=== PATIENT | female | born 1970 | race Caucasian/White ===

== ENCOUNTER 2017-08-13 09:07 | Day surgery (SDC) | payer BC ==
[~2017-08-13 09:07] MED LIST: Fluorescein 5 ML Vial ONE; Lidocaine 2% 5 ML SDV ONE; Methylene Blue 50 MG/10 ML Ampule ONE; Midazolam 1 MG/ML 2 ML SDV ONE; Ondansetron 4 MG/2 ML SDV ONE; Propofol 200 MG/20 ML SDV ONE; Rocuronium 10 MG/ML 10 ML Syringe ONE; Scopolamine 1.5 MG Transdermal Patch TRDERM PRN; Sodium Chloride 0.9% 10 ML Syringe FLUSH PRN; Sodium Chloride 0.9% 2.5 ML Syringe FLUSH PRN; Sodium Chloride 0.9% 20 ML ONE; ceFAZolin 1 GM in Premix Bag 1 BAG IV ONE; diphenhydrAMINE 50 MG/ML SDV ONE; fentaNYL 100 MCG/2 ML SDV IVPUSH PRN
[2017-08-13] MEDS ORDERED: Acetaminophen 1,000 MG in Premix Bag 1 BAG IV SCH (09:30)
--- NOTE | 2017-08-13 09:43 | PCM.PREANE ---
Preanesthetic Assessment - Anesthesia/Transfusion/Family Hx Anesthesia History: Prior Anesthesia Without Reaction Family History of Anesthesia Reaction: No Transfusion History: No Prior Transfusion(s) Intubation History: Unknown - Review of Systems General: No Symptoms Pulmonary: No Symptoms Cardiovascular: No Symptoms Gastrointestinal: No Symptoms Neurological: No Symptoms Other: Reports: None - Physical Assessment Height: 1.7 m Weight: 74.389 kg ASA Class: 2 Mental Status: Alert & Oriented x3 Airway Class: Mallampati = 2 Dentition: Reports: Normal Dentition Thyro-Mental Finger Breadths: 3 Mouth Opening Finger Breadths: 2 (TMJ) Lungs: Clear to Auscultation, Normal Respiratory Effort Cardiovascular: Regular Rate, Regular Rhythm - Allergies Allergies/Adverse Reactions: Allergies Allergy/AdvReac Type Severity Reaction Status Date / Time morphine Allergy Agitation Verified 08/08/17 13:21 - Blood Blood Available: No - Anesthesia Plan Pre-Op Medication Ordered: None - Acknowledgements Anesthesia Type Planned: General Anesthesia Pt an Appropriate Candidate for the Planned Anesthesia: Yes Alternatives and Risks of Anesthesia Discussed w Pt/Guardian: Yes Pt/Guardian Understands and Agrees with Anesthesia Plan: Yes PreAnesthesia Questionnaire HEENT History: Reports: Allergic Rhinitis, Glaucoma Other HEENT History: had procedure to releave pressure in eyes, allergies only in summer Cardiovascular History: Reports: Other (See Below) Other Cardiovascular History: wore Holter monitor recently, she was not given results, supp. there was sinus tachy - no report or medication given Respiratory History: Reports: Asthma (moderate) Other Respiratory History: no problems in the winter, has not used rescue inhaler for 3 years Gastrointestinal History: Reports: Diverticulosis, GERD Other Gastrointestinal History: changed diet with resolution of GERD [employer] FINISHER History: Reports: Dysfunctional Uterine Bleeding, , Spontaneous Musculoskeletal History: Reports: Fracture Other Musculoskeletal History: hx of fx left hand Neurological History: Reports: Concussion, Headaches, Chronic, Migraines Other Neuro History: headaches daily, hx of cluster migranes, hx of 5 concussions Psychiatric History: Reports: Other (See Below) Other Psychiatric History: needle phobia Oncologic (Cancer) History: Reports: Basal Cell Carcinoma, Other (See Below) Other Oncologic History: states has increased risk of Leukemia because of insecticide poisening (Malathion) - Past Surgical History HEENT Surgical History: Reports: Oral Surgery, Other (See Below) Other HEENT Surgeries/Procedures: wisdom teeth, had abscess in throat drained in surgery Female Surgical History: Reports: Section Musculoskeletal Surgical History: Reports: Arthroscopic Knee Other Oncologic Surgeries/Procedures: basal cell removed from face Dermatological Surgical History: Reports: Skin Biopsy (basal cell) - SUBSTANCE USE Smoking Status *Q: Former Smoker (quit long time ago) Recreational Drug Use History: Yes Recreational Drug Type: Reports: Methamphetamine Recreational Drug Last Use: 2001 - HOME MEDS Home Medications: Home Meds Norethindrone-Ethinyl Estrad [Nortrel 1-35 28 Tablet] 1 tab PO DAILY 08/08/17 [ History] - CURRENT (IN HOUSE) MEDS Current Meds: Current Medications Fentanyl (Sublimaze) 50 mcg IVPUSH .Q5MIN PRN PRN Reason: Pain Acetaminophen 1,000 mg/ Premix 100 mls @ 400 mls/hr IV .ONETIME [facility] Scopolamine (Transderm-Scop) 1.5 mg TRDERM .ONCE PRN PRN Reason: Post Op Nausea Sodium Chloride (Saline Flush) 10 ml FLUSH ASDIRECTED PRN PRN Reason: Keep Vein Open Sodium Chloride (Saline Flush) 2.5 ml FLUSH ASDIRECTED PRN PRN Reason: Keep Vein Open Discontinued Medications Diphenhydramine HCl (Benadryl) Confirm Administered Dose 50 mg .ROUTE .STK-MED ONE Stop: 08/13/17 07:19 Fluorescein Sodium (Ak-Fluor) Confirm Administered Dose 5 ml .ROUTE .STK-MED ONE Stop: 08/13/17 07:22 Cefazolin Sodium/Dextrose 1 gm (/ Premix) 50 mls @ 100 mls/hr IV ONETIME ONE Stop: 08/13/17 05:29 Sodium Chloride (Normal Saline) Confirm Administered Dose 20 mls @ as directed .ROUTE .STK-MED ONE Stop: 08/13/17 07:19 Cefazolin Sodium/Dextrose (Ancef) Confirm Administered Dose 50 mls @ as directed .ROUTE .STK-MED ONE Stop: 08/13/17 07:19 Sufentanil Citrate (Sufentanil Citrate) Confirm Administered Dose 1 mls @ as directed .ROUTE .STK-MED ONE Stop: 08/13/17 07:21 Lidocaine (Xylocaine-Mpf 2%) Confirm Administered Dose 5 ml .ROUTE .STK-MED ONE Stop: 08/13/17 07:18 Methylene Blue (Provayblue) Confirm Administ[facility]: 08/13/17 08:00 Midazolam HCl (Versed 1 Mg/Ml) Confirm Administered Dose 2 mg .ROUTE .[facility] ONE Stop: 08/13/17 07:18 Ondansetron HCl (Zofran) Confirm Administered D[facility] 4 mg [facility] Stop: 08/13/17 07:18 Propofol (Diprivan 20 Ml) Confirm Administered Dose 200 mg .ROUTE .[facility] ONE Stop: 08/13/17 07:18 Rocuronium [place] (Zemuron) Confirm Administered Dose 100 [facility] Stop: 08/13/17 07:18
[2017-08-13] MEDS: Lactated Ringers 1,000 ML IV SCH ×2 (09:54→22:19)
[2017-08-13] MEDS ORDERED: Bupivacaine 0.25% 10 ML SDV ONE (10:25)
[2017-08-13 10:56] LABS: CHLORIDE,CL 108 mmol/L (98-110); SODIUM,NA 140 mmol/L (136-146)
[2017-08-13] MEDS ORDERED: Furosemide 40 MG/4 ML VIAL ONE (11:34)
[2017-08-13] MEDS ORDERED: Ketorolac 30 MG/ML SDV ONE (12:16)
[2017-08-13] MEDS ORDERED: Neostigmine Methylsulfate 1 MG/ML 5 ML Syringe ONE (12:17)
[2017-08-13] MEDS ORDERED: Acetaminophen/oxyCODONE 325-5 MG Tab PO PRN ×2 (12:21)
[2017-08-13] MEDS ORDERED: Ketorolac 30 MG/ML SDV IVPUSH ONE (12:21)
[2017-08-13] MEDS ORDERED: Aluminum Hydroxide/Magnesium Hydroxide/Simethicone Susp 30 ML Cup PO PRN (12:21)
[2017-08-13] MEDS ORDERED: Promethazine 25 MG/ML SDV IM PRN (12:21)
[2017-08-13] MEDS ORDERED: Ondansetron 4 MG/2 ML SDV IVPUSH PRN (12:21)
[2017-08-13] MEDS ORDERED: Lactated Ringers 1,000 ML IV SCH (12:30)
[2017-08-13] MEDS ORDERED: fentaNYL 100 MCG/2 ML SDV IVPUSH PRN (12:31)
--- NOTE | 2017-08-13 12:40 | PCM.OPNOTE ---
- General Post-Op/Procedure Note Date of Surgery/Procedure: 08/13/17 Operative Procedure(s): LAVH/bilateral salpingectomy/cystoscopy Findings: 10 week fibroid uterus, normal appearing ovaries/tubes/bilateral patent ureters Pre Op Diagnosis: Uterine fibroids. Abnormal uterine bleeding Post-Op Diagnosis: same Anesthesia Technique: General ET Tube Primary Surgeon: Vicki Hope Sodium Chlorite Operator: Daniela Ahn Pathology: uterus, tubes Fluid Replacement, Intraop: 1,800 Output, Urine Amount: 50 EBL in mLs: 50 Complications: none known Condition: Good Free Text/Narrative:: Dictation [id number]
[2017-08-13] MEDS: Metoclopramide 10 MG/2 ML SDV IVPUSH PRN (17:39)
[2017-08-13] MEDS: Ketorolac 30 MG/ML SDV IVPUSH PRN (17:42)
--- NOTE | 2017-08-13 18:29 | PCM.SN ---
- Free Text/Narrative Note: Patient is having nausea--have added reglan to antiemetic regimen. She has some cramping, pain meds are helping to alleviate. VS are stable overall. Explained intraoperative findings, procedure. Ambulate this pm. Remove garcia catheter this evening. If nausea is improved and able to void with stable labs in the morning, anticipate discharge.
--- NOTE | 2017-08-13 18:36 | OR ---
SURGEON: Vicki Hope M.D. DATE OF PROCEDURE: 08/13/2017 PREOPERATIVE DIAGNOSES: 1. Symptomatic uterine fibroids. 2. Abnormal uterine bleeding. POSTOPERATIVE DIAGNOSES: 1. Symptomatic uterine fibroids. 2. Abnormal uterine bleeding. PROCEDURE: Laparoscopic-assisted vaginal hysterectomy, bilateral salpingectomy, and cystoscopy. WEB MANAGER: Daniela Ahn M.D. ESTIMATED BLOOD LOSS: 50 mL. ANESTHESIA: General tracheal anesthesia. FLUIDS: 1800 mL crystalloids. COMPLICATIONS: None known. DISPOSITION: Patient to PACU in stable. SPECIMEN: Pathology. PROCEDURE IN DETAIL: German is a 46-year-old female, who has known uterine fibroids and now has had over a month of persistent vaginal bleeding. Sonohysterogram reveals that the fibroid does appear to have a submucosal component. She would like to have definitive intervention for this in the from of hysterectomy. Risks of the procedure have been discussed with her and proper consent obtained. The patient was taken to the operating room, where she underwent general endotracheal anesthesia, placed in modified dorsal lithotomy position, and prepped and draped in the usual sterile fashion. SCDs lower extremities. Rodriguez to gravity. It was back filled with methylene blue. Received Ancef prophylactically. Time-out was performed. Speculum was introduced in the vagina. Anterior lip of cervix was grasped with a single-tooth tenaculum. Cervix was gently dilated to 5 mm. Uterine HUMI manipulator was gently introduced. Balloon was insufflated. All instruments other than the uterine manipulator were now removed from the vagina. Gloves changed. Attention turned abdominally. Infraumbilically, 0.25% Marcaine was dispensed. Please see nurse's notes for total amount of local dispensed during the procedure. A 5 mm infraumbilical incision was created, anterior abdominal wall tented upward. A Veress needle introduced, saline hanging drop test was performed. Pneumoperitoneum was achieved. The Veress needle was removed. A 5-mm trocar was introduced. Laparoscope was introduced. Peritoneal contents were identified. Left and right lower quadrant trocars were placed under direct visualization after prepping the regions with 0.25% Marcaine creating 5 mm skin incisions and introducing trocars. The uterus was mobile, it was slightly bulky with fibroids, and the ovaries appeared normal. Fallopian tubes appeared normal. Ureters were seen peristalsing well below the region of the operative field. We initially began with performing a left salpingectomy up to the level of the cornua and then secured the pedicles using LigaSure including the tubo-ovarian pedicle the upper portion of the broad ligament, the midportion of broad ligament, including the round ligament, base of the broad ligament including cardinal ligaments. The bladder flap was then created by identifying uterovesical reflection and incising the peritoneum along this region. Remainder of the cardinal ligaments, along the left side were now secured with LigaSure and transected. Attention was now turned to performing the same procedure on the patient's right side. The right salpingectomy until the cornu was performed. Pedicles secured including utero tubo-ovarian, the pedicles along the broad ligament including the round ligament, and a portion of broad ligament, base of cardinal ligaments down to the level of the uterosacral ligament. The bladder flap was now further dissected using LigaSure and hydrodissection. The bladder was felt to be nicely mobilized away from lower uterine segment and cervix. It was felt that could proceed vaginally with remainder of the procedure. Therefore, pneumoperitoneum was released. Laparoscopic instruments were removed. Attention was turned vaginally. The methylene blue was now released from the bladder. Weighted speculum was introduced in the vagina, anterior Josie. Cervix was grasped with Yany clamp and circumscribed with Bovie cautery. Anterior and posterior and overlying mucosa was dissected away from underlying peritoneum. Posterior peritoneum was tented downward and entered sharply. A longer weighted speculum was replaced with the shorter. Anteriorly, the anterior cul-de-sac was entered sharply. A Josie was placed to mobilize the bladder away from the lower uterine segment and cervix. The Erik clamp was utilized on either side to secure the uterosacral ligament pedicles, transected and suture ligated with 2-0 Vicryl. The uterus including the fallopian tubes were able to be removed at this time. These pedicles were secured and then the pedicles were transfixed to the vaginal apex on either side. The pedicles were closely inspected and found to be hemostatic. The cuff was now closed using 0 Vicryl in continuous running locked fashion. The cuff line was inspected, found to be hemostatic. Rodriguez balloon was desufflated. Rodriguez catheter was removed. Cystoscope was introduced, IV fluorescein and Lasix had been introduced. The bladder was able to be visualized. The dome of bladder was found to be intact. The trigone was inspected and found to be intact. The right ureteral orifice followed by the left ureteral orifice was visualized and fluorescein dye was seen streaming from them, helping to ensure ureteral patency. The bladder was now drained. Rodriguez catheter was replaced. Vaginal cuff line was again inspected and found to be hemostatic. Gloves changed. Attention was turned abdominally. Pneumoperitoneum was once again achieved. Laparoscope was introduced. The pedicles were closely inspected, copiously irrigated, and found to be hemostatic. The relief pressure was decreased to 5 mm. Once again, pedicles was still found to be hemostatic. The patient tolerated this procedure well. The laparoscopic instruments were now removed after pneumoperitoneum was released under direct visualization. The skin edges were reapproximated using 4-0 Monocryl in subcuticular fashion. Sponge, lap, needle count was correct x2. The patient tolerated the procedure well. She will go to PACU in stable condition. Specimens to pathology. PRISCILA / TIERRA /[id number]
[2017-08-13] MEDS: Docusate Sodium 100 MG Cap PO SCH (22:36)
[2017-08-14 05:56] LABS: CHLORIDE,CL 112 mmol/L (98-110); SODIUM,NA 140 mmol/L (136-146)
[2017-08-14] MEDS: Docusate Sodium 100 MG Cap PO SCH (09:24)
[2017-08-14] MEDS ORDERED: Simethicone 80 MG Tab.Chew PO ONE (10:36)
--- NOTE | 2017-08-14 10:36 | PCM.SURGPN ---
- General Info Date of Service: 08/14/17 POD#: 1 Functional Status: Reports: Pain Controlled, Tolerating Diet, Ambulating, Urinating - Review of Systems General: Denies: Fever Pulmonary: Denies: Shortness of Breath Cardiovascular: Denies: Chest Pain, Palpitations, Lightheadedness Gastrointestinal: Reports: Abdominal Pain (mild bloating today), Flatus. Denies : Nausea, Vomiting Genitourinary: Denies: Flank Pain Neurological: Reports: No Symptoms Psychiatric: Reports: No Symptoms - Patient Data Vitals - Most Recent: Last Vital Signs Temp 37.5 C 08/14/17 08:00 Pulse 64 08/14/17 08:00 Resp 18 08/14/17 08:00 BP 109/60 08/14/17 08:00 Pulse Ox 95 08/14/17 08:00 Weight - Most Recent: 74.389 kg I&O - Last 24 Hours: Intake & Output 08/13/17 08/14/17 08/14/17 22:59 06:59 14:59 Intake Total 625 1925 Output Total 400 2400 Balance 225 -475 Lab Results Last 24 Hrs: Laboratory Results - last 24 hr 08/13/17 08/14/17 08/14/17 Range/Units 09:32 04:48 04:48 WBC 12.58 H (4.0-11.0) K/uL RBC 3.95 L (4.30-5.90) M/uL Hgb 12.1 (12.0-16.0) g/dL Hct 36.1 (36.0-46.0) % MCV 91.4 (80.0-98.0) fL MCH 30.6 (27.0-32.0) pg MCHC 33.5 (31.0-37.0) g/dL RDW Std Deviation 49.8 (28.0-62.0) fl RDW Coeff of Janes 15 (11.0-15.0) % Plt Count 269 (150-400) K/uL MPV 9.50 (7.40-12.00) fL Neut % (Auto) 59.3 (48.0-80.0) % Lymph % (Auto) 27.7 (16.0-40.0) % Bull[place] % (Auto) 11.8 (0.0-15.0) % Eos % (Auto) 1.0 (0.0-7.0) % Baso % (Auto) 0.2 (0.0-1.5) % Neut # (Auto) 7.5 H (1.4-5.7) K/uL Lymph # (Auto) 3.5 H (0.6-2.4) K/uL Bulloch # (Auto) 1.5 H (0.0-0.8) K/uL Eos # (Auto) 0.1 (0.0-0.7) K/uL Baso # (Auto) 0.0 (0.0-0.1) K/uL Nucleated RBC % 0.0 /100WBC Nucleated RBCs # 0 K/uL Sodium 140 140 (136-146) mmol/L Potassium 3.9 4.2 (3.5-5.1) mmol/L Chloride 108 112 H (98-110) mmol/L Carbon Dioxide 22 19 L (21-31) mmol/L BUN 13 5 L (6.0-23.0) mg/dL Creatinine 0.7 0.6 (0.6-1.5) mg/dL Est Cr Clr Drug Dosing 97.65 113.93 mL/min Estimated GFR (MDRD) > 60.0 > 60.0 ml/min Glucose 84 99 (60-110) mg/dL Calcium 8.7 L 7.7 L (8.8-10.8) mg/dL Med Orders - Current: Current Medications Al Hydroxide/Mg Hydroxide (Mag-Al Plus) 30 ml PO Q4H PRN PRN Reason: Indigestion Docusate Sodium (Colace) 100 mg PO BID [facility] Last Admin: 08/14/17 09:24 Dose: Not Given Fentanyl (Sublimaze) 20 mcg IVPUSH Q1H PRN PRN Reason: Pain Acetaminophen 1,000 mg/ Premix 100 mls @ 400 mls/hr IV .ONETIME [facility] Last Admin: 08/13/17 09:51 Dose: 400 mls/hr Ketorolac Tromethamine (Toradol) 30 mg IVPUSH Q6H PRN PRN Reason: Pain (severe 7-10) Stop: 08/18/17 12:21 Last Admin: 08/13/17 17:42 Dose: 30 mg Metoclopramide HCl (Reglan) 10 mg IVPUSH Q6H PRN PRN Reason: Nausea/Vomiting Last Admin: 08/13/17 17:39 Dose: 10 mg Ondansetron HCl (Zofran) 4 mg IVPUSH Q6H PRN PRN Reason: Nausea/Vomiting Last Admin: 08/13/17 14:15 Dose: 4 mg Oxycodone/Acetaminophen (Percocet 325-5 Mg) 1 tab PO Q4H PRN PRN Reason: Pain (moderate 4-6) Last Admin: 08/14/17 03:21 Dose: 1 tab Oxycodone/Acetaminophen (Percocet 325-5 Mg) 2 tab PO Q4H PRN PRN Reason: Pain (moderate 4-6) Last Admin: 08/13/17 14:12 Dose: 2 tab Sodium Chloride (Saline Flush) 10 ml FLUSH ASDIRECTED PRN PRN Reason: Keep Vein Open Sodium Chloride (Saline Flush) 2.5 ml FLUSH ASDIRECTED PRN PRN Reason: Keep Vein Open Discontinued Medications Bupivacaine HCl (Sensorcaine-Mpf 0.25%) Confirm Administered Dose 20 ml .ROUTE .STK-MED ONE Stop: 08/13/17 10:26 Diphenhydramine HCl (Benadryl) Confirm Administered Dose 50 mg .ROUTE .STK-MED ONE Stop: 08/13/17 07:19 Fentanyl (Sublimaze) 50 mcg IVPUSH .Q5MIN PRN PRN Reason: Pain Fluorescein Sodium (Ak-Fluor) Confirm Administered Dose 5 ml .ROUTE .STK-MED ONE Stop: 08/13/17 07:22 Furosemide (Lasix) Confirm Administered Dose 40 mg .ROUTE .STK-MED ONE Stop: 08/13/17 11:35 Glycopyrrolate () Confirm Administered Dose 1 mg .ROUTE .STK-MED ONE Stop: 08/13/17 12:18 Cefazolin Sodium/Dextrose 1 gm (/ Premix) 50 mls @ 100 mls/hr IV ONETIME ONE Stop: 08/13/17 05:29 Last Admin: 08/13/17 16:22 Dose: Not Given Sodium Chloride (Normal Saline) Confirm Administered Dose 20 mls @ as directed .ROUTE .STK-MED ONE Stop: 08/13/17 07:19 Cefazolin Sodium/Dextrose (Ancef) Confirm Administered Dose 50 mls @ as directed .ROUTE .STK-MED ONE Stop: 08/13/17 07:19 Sufentanil Citrate (Sufentanil Citrate) Confirm Administered Dose 1 mls @ as directed .ROUTE .ST-MED ONE Stop: 08/13/17 07:21 Lactated Ringer's (Ringers, Lactated) 1,000 mls @ 125 mls/hr IV ASDIRECTED [facility] Last Admin: 08/13/17 22:19 Dose: 125 mls/hr Lactated Ringer's (Ringers, Lactated) 1,000 mls @ 125 mls/hr IV ASDIRECTED [facility] Last Admin: 08/13/17 14:11 Dose: 125 mls/hr Ketorolac Tromethamine (Toradol) Confirm Administered Dose 30 mg .ROUTE .ST- MED ONE Stop: 08/13/17 12:17 Ketorolac Tromethamine (Toradol) 30 mg IVPUSH ONETIME ONE Stop: 08/13/17 12:22 Last Admin: 08/13/17 16:21 Dose: Not Given Lidocaine (Xylocaine-Mpf 2%) Confirm Administered Dose 5 ml .ROUTE .ST-MED ONE Stop: 08/13/17 07:18 Methylene Blue (Provayblue) Confirm Administered Dose 50 mg .ROUTE .[facility]-MED ONE Stop: 08/13/17 08:00 Midazolam HCl (Versed 1 Mg/Ml) Confirm Administered Dose 2 mg .ROUTE .ST-MED ONE Stop: 08/13/17 07:18 Neostigmine Methylsulfate (Neostigmine) Confirm Administered Dose 5 mg .ROUTE .ST-MED ONE Stop: 08/13/17 12:18 Ondansetron HCl (Zofran) Confirm Administered Dose 4 mg .ROUTE .ST-MED ONE Stop: 08/13/17 07:18 Promethazine HCl (Phenergan) 25 mg IM Q6H PRN PRN Reason: Nausea/Vomiting Propofol (Diprivan 20 Ml) Confirm Administered Dose 200 mg .ROUTE .ST-MED ONE Stop: 08/13/17 07:18 Rocuronium [place] (Zemuron) Confirm Administered Dose 100 mg .ROUTE .STK-MED ONE Stop: 08/13/17 07:18 Scopolamine (Transderm-Scop) 1.5 mg TRDERM .ONCE PRN PRN Reason: Post Op Nausea - Exam Wound/Incisions: Dressing Dry and Intact General: Alert, Oriented Lungs: Normal Respiratory Effort Cardiovascular: Regular Rate, Regular Rhythm GI/Abdominal Exam: Normal Bowel Sounds, Soft, Distended (mild post laparoscopy) Extremities: No: Giselle's Sign Skin: Warm, Dry, Intact Psy/Mental Status: Alert - Problem List & Annotations (1) Leiomyoma of body of uterus SNOMED Code(s): 18993720 Code(s): D25.9 - LEIOMYOMA OF UTERUS, UNSPECIFIED Status: Acute Current Visit: Yes - Problem List Review Problem List Initiated/Reviewed/Updated: Yes - My Orders Last 24 Hours: Active Orders 24 hr Category Date Time Status Antiembolic Devices [RC] PER UNIT ROUTINE Care 08/13/17 12:22 Active May Shower [RC] ASDIRECTED Care 08/13/17 12:21 Active Notify Provider Intake and Out [RC] ASDIRECTED Care 08/13/17 12:21 Active Notify Provider Vital Signs [RC] ASDIRECTED Care 08/13/17 12:21 Active Oxygen Therapy [RC] ASDIRECTED Care 08/13/17 12:21 Active Pulse Oximetry [RC] PER UNIT ROUTINE Care 08/13/17 12:22 Active RT Incentive Spirometry [RC] Q2HWA Care 08/13/17 12:21 Active Ready for Discharge [RC] PER UNIT ROUTINE Care 08/14/17 10:32 Ordered Up With Assistance [RC] PER UNIT ROUTINE Care 08/13/17 12:21 Active Up ad Linda [RC] PER UNIT ROUTINE Care 08/13/17 12:21 Active Vital Signs [RC] Q4H Care 08/13/17 12:21 Active Regular Diet [DIET] Diet 08/13/17 Lunch Active Acetaminophen/oxyCODONE [Percocet 325-5 MG] Med 08/13/17 12:21 Active 1 tab PO Q4H PRN Acetaminophen/oxyCODONE [Percocet 325-5 MG] Med 08/13/17 12:21 Active 2 tab PO Q4H PRN Alum Hydrox/Mag Hydrox/Simeth [Mag-Al Plus] Med 08/13/17 12:21 Active 30 ml PO Q4H PRN Docusate Sodium [Colace] Med 08/13/17 21:00 Active 100 mg PO BID Ketorolac [Toradol] Med 08/13/17 12:21 Active 30 mg IVPUSH Q6H PRN Metoclopramide [Reglan] Med 08/13/17 17:32 Active 10 mg IVPUSH Q6H PRN Ondansetron [Zofran] Med 08/13/17 12:21 Active 4 mg IVPUSH Q6H PRN fentaNYL [Sublimaze] Med 08/13/17 12:31 Active 20 mcg IVPUSH Q1H PRN Perineal Care [OM.PC] Per Unit Routine Oth 08/13/17 12:22 Ordered Peripheral IV Discontinue [OM.PC] Routine Oth 08/13/17 12:21 Ordered Sequential Compression Device [OM.PC] Per Unit Routine Oth 08/13/17 12:21 Ordered Medication Orders Al Hydroxide/Mg Hydroxide (Mag-Al Plus) 30 ml PO Q4H PRN PRN Reason: Indigestion Docusate Sodium (Colace) 100 mg PO BID [facility] Last Admin: 08/14/17 09:24 Dose: Not Given Admin: 08/13/17 22:36 Dose: Not Given Fentanyl (Sublimaze) 20 mcg IVPUSH Q1H PRN PRN Reason: Pain Acetaminophen 1,000 mg/ Premix 100 mls @ 400 mls/hr IV .ONETIME [facility] Last Admin: 08/13/17 09:51 Dose: 400 mls/hr Ketorolac Tromethamine (Toradol) 30 mg IVPUSH Q6H PRN PRN Reason: Pain (severe 7-10) Stop: 08/18/17 12:21 Last Admin: 08/13/17 17:42 Dose: 30 mg Metoclopramide HCl (Reglan) 10 mg IVPUSH Q6H PRN PRN Reason: Nausea/Vomiting Last Admin: 08/13/17 17:39 Dose: 10 mg Ondansetron HCl (Zofran) 4 mg IVPUSH Q6H PRN PRN Reason: Nausea/Vomiting Last Admin: 08/13/17 14:15 Dose: 4 mg Oxycodone/Acetaminophen (Percocet 325-5 Mg) 1 tab PO Q4H PRN PRN Reason: Pain (moderate 4-6) Last Admin: 08/14/17 03:21 Dose: 1 tab Oxycodone/Acetaminophen (Percocet 325-5 Mg) 2 tab PO Q4H PRN PRN Reason: Pain (moderate 4-6) Last Admin: 08/13/17 14:12 Dose: 2 tab Sodium Chloride (Saline Flush) 10 ml FLUSH ASDIRECTED PRN PRN Reason: Keep Vein Open Sodium Chloride (Saline Flush) 2.5 ml FLUSH ASDIRECTED PRN PRN Reason: Keep Vein Open - Assessment Assessment (Free Text/Narrative):: POD 1 status post LAVH/bilateral salpingectomy - Plan Plan (Free Text/Narrative):: Patient is doing well, trial of simethicone this morning to help with bloating. VS are stable and labs are reassuring. She is ambulating halls, voiding and denies pain other than bloating. Otherwise, is ready to go home. Discharge instructions reviewed. Infection and bleeding warning reviewed. Follow up at [facility] 2 and 6 weeks.
[2017-08-14] MEDS: Ketorolac 30 MG/ML SDV IVPUSH PRN (12:20)
[2017-08-14] MEDS: Metoclopramide 10 MG/2 ML SDV IVPUSH PRN (12:24)
== END 2017-08-14 12:35 | disposition home or self-care (01) ==
LOC: MW.SDS 09:07 → MW.MS 13:49 → MW.SDS 08-14 12:35
PROVIDERS: ATTEND Obstetrics & Gynecology
DX: D25.1 Intramural leiomyoma of uterus (principal); D25.0 Submucous leiomyoma of uterus; N72 Inflammatory disease of cervix uteri; J45.909 Unspecified asthma, uncomplicated; E16.2 Hypoglycemia, unspecified; Z87.891 Personal history of nicotine dependence; Z88.8 Allergy status to other drugs, medicaments and biological substances; Z79.899 Other long term (current) drug therapy
CPT/HCPCS: 36415; 58552; 80048; 84703; 85025; 85027; 86850; 86900; 86901; 88307; A9270; J0690; J1885; J1940; J2250; J2405; J2765; J7120; 00840; J1200; J2704